=== PATIENT | male | born 1970 | race Two or more races ===

== ENCOUNTER 2022-02-09 07:06 | Day surgery (SDC) | payer OTHER ==
[~2022-02-09] VITALS: Ht 170.2 cm; Wt 61.0 kg
== END 2022-02-09 08:48 | disposition home or self-care (01) ==
LOC: ORSCSDS 07:06 → ORSCMMR 08:00 → ORD 08:00 → ORSCSDS 08:48
PROVIDERS: Internal Medicine Gastroenterology
PROC: 0DBM8ZX Excision of Descending Colon, Via Natural or Artificial Opening Endoscopic, Diagnostic (ICD-10-PCS; principal; 2022-02-09 08:00)
PROC: 0DBN8ZX Excision of Sigmoid Colon, Via Natural or Artificial Opening Endoscopic, Diagnostic (ICD-10-PCS; principal; 2022-02-09 08:00)
DX: Z12.11 Encounter for screening for malignant neoplasm of colon (principal); D12.5 Benign neoplasm of sigmoid colon; D12.4 Benign neoplasm of descending colon; E78.00 Pure hypercholesterolemia, unspecified
CPT/HCPCS: 88305; J2250; J2704; J7120